=== PATIENT | female | born 1955 | race Caucasian/White ===

== ENCOUNTER 2018-01-06 11:38 | Day surgery (SDC) | payer BC ==
[~2018-01-06 11:38] MED LIST: Lactated Ringers 1,000 ML IV SCH; Midazolam 1 MG/ML 2 ML SDV ONE; Propofol 200 MG/20 ML SDV ONE; fentaNYL 100 MCG/2 ML SDV ONE
--- NOTE | 2018-01-06 12:02 | PCM.PREANE ---
Preanesthetic Assessment - Anesthesia/Transfusion/Family Hx Anesthesia History: Prior Anesthesia Without Reaction Other Type of Anesthesia Reaction Comment: "some nausea after having anesthesia " Family History of Anesthesia Reaction: No Transfusion History: No Prior Transfusion(s) Intubation History: Unknown - Review of Systems General: No Symptoms Pulmonary: No Symptoms Cardiovascular: No Symptoms Gastrointestinal: Other (pancolonic diverticulosis, h/o C.Diff. colotis in august) Neurological: No Symptoms Other: Reports: None - Physical Assessment Height: 1.55 m Weight: 78.925 kg ASA Class: 2 Mental Status: Alert & Oriented x3 Airway Class: Mallampati = 2 Dentition: Reports: Normal Dentition Thyro-Mental Finger Breadths: 2 Mouth Opening Finger Breadths: 2 ROM/Head Extension: Limited/Partial Lungs: Clear to Auscultation, Normal Respiratory Effort Cardiovascular: Regular Rate, Regular Rhythm - Allergies Allergies/Adverse Reactions: Allergies Allergy/AdvReac Type Severity Reaction Status Date / Time codeine Allergy Nausea and Verified 12/31/17 10:56 Vomiting - Blood Blood Available: No - Anesthesia Plan Pre-Op Medication Ordered: None - Acknowledgements Anesthesia Type Planned: MAC Pt an Appropriate Candidate for the Planned Anesthesia: Yes Alternatives and Risks of Anesthesia Discussed w Pt/Guardian: Yes Pt/Guardian Understands and Agrees with Anesthesia Plan: Yes PreAnesthesia Questionnaire HEENT History: Reports: Other (See Below) Other HEENT History: wears glasses Cardiovascular History: Reports: Hypertension Respiratory History: Reports: Sleep Apnea Other Respiratory History: not currently using CPAP Gastrointestinal History: Reports: Other (See Below) Other Gastrointestinal History: C-diff in Aug, 2017 Genitourinary History: Reports: None [employer] History: Reports: None Musculoskeletal History: Reports: Arthritis, Back Pain, Chronic, Fracture, Neck Pain, Chronic Other Musculoskeletal History: hx of fx right ankle and 2 fingers left hand Neurological History: Reports: None Psychiatric History: Reports: None Endocrine/Metabolic History: Reports: Obesity/BMI 30+ Hematologic History: Reports: None Immunologic History: Reports: None Oncologic (Cancer) History: Reports: None Dermatologic History: Reports: None - Past Surgical History Head Surgeries/Procedures: Reports: None HEENT Surgical History: Reports: None Cardiovascular Surgical History: Reports: None Respiratory Surgical History: Reports: None GI Surgical History: Reports: Colonoscopy (x4) Female Surgical History: Reports: Hysterectomy Endocrine Surgical History: Reports: None Neurological Surgical History: Reports: C-Spine, Laminectomy Musculoskeletal Surgical History: Reports: Other (See Below) Other Musculoskeletal Surgeries/Procedures:: ,neck fusion, fusion of right ankle Oncologic Surgical History: Reports: None - SUBSTANCE USE Smoking Status *Q: Never Smoker Recreational Drug Use History: No - HOME MEDS Home Medications: Home Meds Fish Oil/Garfield-3 Fatty Acids [Fish Oil 1,000 MG] 1 cap PO DAILY 05/17/16 [ History] Gebauers Cleghorn 1 spray TOP ASDIRECTED PRN 05/17/16 [History] Olmesartan/Amlodipin/Hcthiazid [Tribenzor 40-10-12.5 MG] 1 tab PO DAILY [History] Zolpidem [Ambien] 0.5 tab PO BEDTIME PRN 05/17/16 [History] traMADol HCl [Tramadol HCl] 1 tab PO BID PRN 05/17/16 [History] Cholecalciferol (Vitamin D3) [Vitamin D3] 1,200 units PO DAILY 12/31/17 [History ] Lutein/Minerals/Vit A,C & E [Ocuvite] 1 tab PO DAILY 12/31/17 [History] - CURRENT (IN HOUSE) MEDS Current Meds: Current Medications Lactated Ringer's (Ringers, Lactated) 1,000 mls @ 125 mls/hr IV ASDIRECTED KRIS Last Admin: 01/06/18 11:53 Dose: 125 mls/hr Discontinued Medications Fentanyl (Sublimaze) Confirm Administered Dose 100 mcg .ROUTE .STK-MED ONE Stop: 01/06/18 08:11 Midazolam HCl (Versed 1 Mg/Ml) Confirm Administered Dose 2 mg .ROUTE .STK-MED ONE Stop: 01/06/18 08:12 Propofol (Diprivan 20 Ml) Confirm Administered Dose 200 mg .ROUTE .STK-MED ONE Stop: 01/06/18 08:11
[2018-01-06] MEDS ORDERED: Propofol 200 MG/20 ML SDV ONE (12:24)
[2018-01-06] MEDS ORDERED: ePHEDrine 50 MG/ML SDV ONE (12:31)
--- NOTE | 2018-01-06 12:58 | PCM.OPNOTE ---
- General Post-Op/Procedure Note Date of Surgery/Procedure: 01/06/18 Operative Procedure(s): Esophagogastroduodenoscopy with biopsy. Colonoscopy. Pre Op Diagnosis: Epigastric pain. Dysphagia. History of antibiotic associated colitis. Post-Op Diagnosis: Mild chronic gastritis. Gastric polyps. Pancolonic diverticulosis. Anesthesia Technique: MAC (ASA II) Primary Surgeon: Gutierrez Cowan Condition: Good Free Text/Narrative:: Dictation [id number] CPT CODE [id number]
[2018-01-06] MEDS ORDERED: Lactated Ringers 1,000 ML IV SCH (13:00)
--- NOTE | 2018-01-06 13:08 | PCM.POSTAN ---
POST ANESTHESIA ASSESSMENT - MENTAL STATUS Mental Status: Alert, Oriented - RESPIRATORY Respiratory Status: Respiratory Rate WNL, Airway Patent, O2 Saturation Stable - CARDIOVASCULAR CV Status: Pulse Rate WNL - GASTROINTESTINAL GI Status: No Symptoms - PAIN Pain Score: 0 - POST OP HYDRATION Hydration Status: Adequate & Stable - OBSERVATIONS Free Text/Narrative:: no anesthesia problems
--- NOTE | 2018-01-06 13:44 | OR ---
SURGEON: Gutierrez Cowan M.D. DATE OF PROCEDURE: 01/06/2018 OPERATION PERFORMED: Colonoscopy. ANESTHESIA: MAC. ASA CLASSIFICATION: II. PREOPERATIVE DIAGNOSIS: Abdominal pain with history of Clostridium difficile diarrhea and colitis. POSTOPERATIVE DIAGNOSIS: Pancolonic diverticulosis. DESCRIPTION OF PROCEDURE: With the patient having completed esophagogastroduodenoscopy, she was maintained in the left lateral decubitus position. The colonoscope was inserted into the rectum and advanced with minimal difficulty to the cecum where the colonoscope was retroflexed to visualize the ascending colon from below. The colonoscope was then straightened and slowly withdrawn. The patient does have diverticular changes noted throughout the entire length of the colon. Good visualization was obtained at all levels during her colonoscopy. No tumors or polyps were seen, and there was no evidence of inflammatory changes on examination today. I did not see any evidence of angiodysplasia. Once the colonoscope was withdrawn to the rectum, it was retroflexed to visualize the anal orifice from above. Again, no tumors or polyps were seen. The patient does have some chronic hemorrhoidal changes. No acute bleeding was noted. No tumors were encountered in the rectum. The colonoscope was then straightened, the rectum aspirated, and the colonoscope removed. The patient tolerated the procedure well and was taken to recovery room in stable condition. ZORAN ALEX /[id number]
[2018-01-06 13:45] VITALS: BP 94/55
--- NOTE | 2018-01-06 13:47 | OR ---
SURGEON: Gutierrez Cowan M.D. DATE OF PROCEDURE: 01/06/2018 OPERATION PERFORMED: Esophagogastroduodenoscopy with biopsy. ANESTHESIA: MAC. ASA CLASSIFICATION: II. PREOPERATIVE DIAGNOSIS: Abdominal pain with dysphagia. POSTOPERATIVE DIAGNOSES: Mild gastritis. No acute ulcerations. No esophageal stricture. DESCRIPTION OF PROCEDURE: The patient was taken to the endoscopy room and positioned on the endoscopy table in the left lateral decubitus position. Time-out was called for appropriate identification of the patient and procedure. Monitored anesthesia care was provided. The bite block was placed between the patient's teeth. The gastroscope was inserted through the bite block and advanced into the esophagus with minimal difficulty. It was then advanced through the esophagus and stomach into the duodenum, so examination could be carried out in a retrograde fashion. The duodenum shows no acute inflammatory changes or ulcerations. The stomach does show mild gastritis, and biopsies of the distal stomach were obtained to look for the evidence of Helicobacter pylori. The scope was then retroflexed to visualize the proximal stomach. The patient does have multiple small gastric polyps. No ulcerations or tumors were noted. Separate biopsies of the polyps were obtained. The gastroscope was then slowly withdrawn. The GE junction was well defined and shows no acute inflammatory changes or ulcerations. The esophagus demonstrated good contractility. No mid or proximal lesions were identified. The vocal cords were briefly visualized as the scope was withdrawn and noted to move symmetrically. The gastroscope was then removed with the patient having tolerated the procedure well. Following colonoscopy, she was taken to recovery room in stable condition. ZORAN / ABI /[id number]
== END 2018-01-06 13:35 | disposition home or self-care (01) ==
LOC: MW.SDS 11:38
PROVIDERS: ATTEND Surgery
DX: K29.50 Unspecified chronic gastritis without bleeding (principal); K31.7 Polyp of stomach and duodenum; K57.30 Diverticulosis of large intestine without perforation or abscess without bleeding; K64.9 Unspecified hemorrhoids; I10 Essential (primary) hypertension; G47.30 Sleep apnea, unspecified; M19.90 Unspecified osteoarthritis, unspecified site; G89.29 Other chronic pain; M54.9 Dorsalgia, unspecified; M54.2 Cervicalgia; M79.1 Myalgia; E66.9 Obesity, unspecified; Z68.32 Body mass index [BMI] 32.0-32.9, adult; Z80.0 Family history of malignant neoplasm of digestive organs; Z79.899 Other long term (current) drug therapy; Z99.89 Dependence on other enabling machines and devices; Z88.5 Allergy status to narcotic agent
CPT/HCPCS: 43239; 45378; J2250; J3010; J7120; 88305; 88312; J2704